=== PATIENT | male | born 1950 | race Caucasian/White ===

== ENCOUNTER 2016-10-25 08:43 | Inpatient (IN) | payer MEDICARE ==
[2016-10-25] MEDS ORDERED: methylPREDNISolone SOD SUCC* 125 MG 2 ML VIAL IV ONE (09:20)
[2016-10-25] MEDS ORDERED: Albuterol/Ipratropium NEB.SOL* Albuterol 2.5 MG/Ipratropium 0.5 MG 3 ML INH ONE (09:20)
--- NOTE | 2016-10-25 10:12 | RAD ---
HISTORY: Shortness of breath COMPARISONS: None VIEWS:1: Single frontal portable view of the chest at 9:40 AM FINDINGS: LINES AND TUBES: None. CARDIOMEDIASTINAL SILHOUETTE: The cardiomediastinal silhouette is normal for portable technique. PLEURA: Please see below LUNG PARENCHYMA: There is sharply marginated opacification of the left upper lung ABDOMEN: The upper abdomen is clear. There is no subphrenic gas. BONES AND SOFT TISSUES: No bone or soft tissue abnormalities are noted. IMPRESSION: THE SHARPLY MARGINATED OPACIFICATION OF THE LEFT UPPER LUNG SUGGESTIVE OF PLEURAL CALCIFICATION, THOUGH AIRSPACE DISEASE IS WITHIN THE DIFFERENTIAL. RECOMMEND CORRELATION WITH PA AND LATERAL DUAL-ENERGY VIEWS OF THE CHEST.
[2016-10-25] MEDS ORDERED: cefTRIAXone(*) 1 GM in NS 0.9% 50 ML* 50 ML IVPB ONE (10:19)
[2016-10-25] MEDS ORDERED: Levofloxacin 500 MG IVPREMIX(* 500 MG/100 ML BAG IVPB ONE (10:19)
[2016-10-25] MEDS ORDERED: NS 0.9% 1000 ML* 2,400 ML IV ONE (10:20)
[2016-10-25 11:12] LABS: Hematocrit 44 % (42-52); Hemoglobin 14.9 g/dl (14.0-18.0); Red Blood Count 4.73 10^6/ul (4.0-5.4); White Blood Count 21.1 10^3/ul (3.5-10.8)
[2016-10-25 11:13] LABS: Mean Corpuscular HGB Conc 34 g/dl (31-36); Mean Corpuscular Hemoglobin 32 pg (27-31); Mean Corpuscular Volume 93 fL (80-94); Mean Platelet Volume 9 um3 (7.4-10.4); Red Cell Distribution Width 13 % (10.5-15)
[2016-10-25 11:25] LABS: PCO2 Arterial 43 mmHg (35-45)
[2016-10-25 11:50] LABS: Troponin I 0.08 ng/mL (<0.04)
[2016-10-25] MEDS ORDERED: Acetaminophen TAB* 325 MG PO PRN (11:52)
[2016-10-25] MEDS ORDERED: NS 0.9% 1000 ML* 1,000 ML IV SCH ×2 (12:00→12:25)
[2016-10-25] MEDS ORDERED: Albuterol/Ipratropium NEB.SOL* Albuterol 2.5 MG/Ipratropium 0.5 MG 3 ML INH PRN (12:01)
[2016-10-25] MEDS ORDERED: Azithromycin TAB* 250 MG PO ONE (12:04)
--- NOTE | 2016-10-25 12:04 | ED ---
Mik Valverde Billy, scribed for Mc Hernandez MD on 10/25/16 at 0918 . Shortness of Breath - HPI Summary HPI Summary: Patient is a 66 year-old male coming to [facility] for evaluation of shortness of breath and productive cough for the last 4 days. SOB is worse with exertion and recumbent position. He also reports chills, denies fever. Patient has been a heavy smoker for the last 50 years, but he recently quit 6 days ago. - History of Current Complaint Chief Complaint: EDShortnessOfBreath Time Seen by Provider: 10/25/16 09:11 Hx Obtained From: Patient Onset/Duration: Gradual Onset, Lasting Days, Still Present Timing: Constant Current Severity: Moderate Dyspnea At: Exertion Aggrevating Factors: Movement, Recumbent Position Alleviating Factors: Upright Position Associated Signs & Symptoms: Cough (Productive), Chills - Allergy/Home Medications Allergies/Adverse Reactions: Allergies Allergy/AdvReac Type Severity Reaction Status Date / Time No Known Allergies Allergy Verified 10/25/16 10:46 PMH/Surg Hx/FS Hx/Imm Hx Endocrine/Hematology History: Denies: Hx Diabetes Cardiovascular History: Denies: Hx Hypertension Infectious Disease History: Denies: Traveled Outside the [place] in Last 30 Days - Family History Known Family History: Positive: Respiratory Disease - emphysema, Other - lung cancer - Social History Alcohol Use: Occasionally - drinks beer 2-3 times a week Hx Substance Use: No Substance Use Type: Reports: None Hx Tobacco Use: Yes Smoking Status (MU): Former Smoker - Quit smoking 6 days ago Review of Systems Positive: Chills. Negative: Fever Positive: Shortness Of Breath, Cough All Other Systems Reviewed And Are Negative: Yes Physical Exam Triage Information Reviewed: Yes Vital Signs On Initial Exam: Initial Vitals Temp Pulse Resp BP Pulse Ox 97.8 F 120 16 118/69 92 10/25/16 08:43 10/25/16 08:43 10/25/16 08:43 10/25/16 08:43 10/25/16 08:43 Vital Signs Reviewed: Yes Appearance: Positive: Well-Appearing Skin: Positive: Warm, Skin Color Reflects Adequate Perfusion Head/Face: Positive: Normal Head/Face Inspection Eyes: Positive: EOMI ENT: Positive: Normal ENT inspection Neck: Positive: Supple, Nontender Respiratory/Lung Sounds: Positive: Wheezes - bilateral with labored breathing Cardiovascular: Positive: Tachycardia. Negative: Murmur Abdomen Description: Positive: Nontender Musculoskeletal: Positive: Normal, Strength/ROM Intact. Negative: Edema Left, Edema Right Neurological: Positive: Normal, Sensory/Motor Intact, Alert, Oriented to Person Place, Time, CN Intact II-III Psychiatric: Positive: Normal Diagnostics - Vital Signs Vital Signs Temp Pulse Resp BP Pulse Ox 10/25/16 08:43 97.8 F 120 16 118/69 92 - Laboratory Result Diagrams: 10/25/16 10:45 10/25/16 10:45 Lab Statement: Any lab studies that have been ordered have been reviewed, and results considered in the medical decision making process. - EKG 0857 EKG Interpretation: sinus tachycardia 115 bpm, no STEMI Re-Evaluation - Re-Evaluation First Eval Re-Evaluation Time: 10:21 Change: Unchanged Comment: charge nurse, and nurse informed the patient needs labs drawn, iv fluids, antibiotics. Course/Dx - Course Course Of Treatment: 66 yr old with thick yellow sputum, and sob, infiltrate chest xray, tachycardia. He will be admitted by hospitalists. - Diagnoses Provider Diagnoses: Pneumonia, Sepsis due to pneumonia - Critical Care Time Critical Care Time: 30-74 min - 35 minutes critical care time Discharge - Discharge Plan Condition: Fair Disposition: ADMITTED TO [facility] The documentation as recorded by the Mik olivares Billy accurately reflects the service I personally performed and the decisions made by , Mc Hernandez MD.
[2016-10-25] MEDS: Heparin VIAL(*) 5000 UNITS/ML VIAL (FIVE THOUSAND) SUBCUT SCH ×2 (13:15→22:12)
[2016-10-25 14:01] LABS: Potassium 3.8 mmol/L (3.5-5.0)
[2016-10-25 14:02] LABS: Albumin 3.7 g/dL (3.2-5.2); BUN/Creatinine Ratio 26.9 (8-20); EGFR African American 127.7 (>60); EGFR Non-African American 99.3 (>60); Globulin 3.8 g/dL (2-4); Total Bilirubin 0.8 mg/dL (0.2-1.0); Total Protein 7.5 g/dL (6.4-8.9)
--- NOTE | 2016-10-25 16:37 | HP ---
HISTORY AND PHYSICAL: DATE OF ADMISSION: 10/25/16 PRIMARY CARE PHYSICIAN: Dr. Chelita Ingram. ATTENDING PHYSICIAN: Dr. Elvis Curtis* (dictated by Michela Schuler NP) CHIEF COMPLAINT: Shortness of breath and cough. HISTORY OF PRESENT ILLNESS: Mr. Fernandez is a 66-year-old male who denies any past medical history, who presents to the emergency room today with complaints of shortness of breath and productive cough for 4 days. The patient reports quitting smoking approximately 6 days ago and has since developed a cough and shortness of breath. The patient reports being seen at Urgent Care yesterday, who recommended the patient be transferred to the emergency room; at that time, the patient declined and went home. The patient continued to have shortness of breath, worse with exertion, with a cough productive of thick green mucus. The patient denies any fever, chest pain, edema, nausea, vomiting, diarrhea. The patient reports chills and shortness of breath with exertion. Due to concern of his continued shortness of breath, the patient presented to the emergency room for further evaluation of his symptoms. While in the emergency room, the patient received IV fluids, DuoNebs, Levaquin, and Solu-Medrol in addition to ceftriaxone. The hospitalists were asked to evaluate the patient for admission. PAST MEDICAL HISTORY: None. PAST SURGICAL HISTORY: None. HOME MEDICATIONS: The patient did not report any medications. ALLERGIES: No known drug allergies. FAMILY HISTORY: The patient's father had history of coronary artery disease with his first myocardial infarction at age 46. The patient denies any family history of diabetes mellitus. The patient's mother had a history of malignant cancer. The patient is unaware what the primary cancer was. SOCIAL HISTORY: The patient reports being a former smoker, smoking a pack a day for 50 years. He reports quitting approximately 6 days ago. The patient drinks 1 to 2 alcoholic drinks 3 times weekly. He denies recreational drug use. The patient is a retired health companion. The patient's daughter, Ute Fernandez, would be his surrogate decision maker in the event that he is unable to make decisions for himself. REVIEW OF SYSTEMS: I performed a 14-point review of systems. All the pertinent positives and negatives are mentioned in the history of present illness. The remaining review of systems is negative. PHYSICAL EXAMINATION GENERAL APPEARANCE: The patient is alert, pleasant, appears to be in no acute distress. VITAL SIGNS: Temperature 98.9, heart rate 106, respiratory rate 26, O2 sat 95% on 2 L via nasal cannula, blood pressure 111/77. HEENT: Normocephalic, atraumatic. Pupils are equal and reactive to light. Extraocular movements are intact. NECK: Supple. RESPIRATORY: There is no accessory muscle use. Lung sounds have bilateral wheezing throughout. CARDIOVASCULAR: Regular rate and rhythm, tachycardic. S1 and S2 present. There are no murmurs, rubs, or gallops heard. ABDOMEN: Soft, nontender, and nondistended. There are bowel sounds present x4. EXTREMITIES: There is no lower extremity edema. DP and PT pulses are 2+ and symmetric. MUSCULOSKELETAL: There is no clubbing or cyanosis noted. The patient exhibits good strength in all extremities. NEUROLOGIC: The patient is alert and oriented x4. Cranial nerves II through XII are grossly intact. PSYCHOLOGICAL: The patient is calm and cooperative. SKIN: There are no rashes or abnormalities seen. DIAGNOSTIC STUDIES/LAB DATA: Chemistry panel pending at the time of dictation. White blood cell count 21.1, hemoglobin 14.9, hematocrit 44, platelet count 343. D- dimer 452. Troponin 0.08. BNP 1195. Lactic acid 0.8. Influenza A and B negative. ABG: pH 7.42, PCO2 43, PO2 149, HCO3 27.1, O2 saturation 99.3, base excess 2.9 on 2 L nasal cannula. EKG shows a sinus tachycardia with a rate of 115. There are no acute signs of ischemia. There are no previous EKGs for comparison. Chest x-ray from today. Radiologist's impression: There is sharply marginated opacification of the left upper lung suggestive of pleural calcification. Though airspace disease is within the differential. Recommend correlation with PA and lateral dual-energy views of the chest. IMPRESSION: Mr. Fernandez is a 66-year-old male with no significant past medical history who presents to the emergency room with complaints of cough and shortness of breath. He will be admitted as an inpatient for community- acquired pneumonia. ASSESSMENT AND PLAN: 1. Community-acquired pneumonia. The patient is currently afebrile at this time. He does have leukocytosis. We will start the patient on ceftriaxone and azithromycin. The patient's qSOFA score is 1 point. The patient is meeting sepsis criteria according to SIRS criteria with tachycardia, tachypnea, and an elevated white blood cell count. The patient will have DuoNeb as needed. 2. Elevated troponin. The patient denies any chest pain. I suspect this is demand ischemia. The patient will be monitored on telemetry and we will trend his troponins. We will also check a fasting lipid level in the morning. 3. Fluids, electrolytes, and nutrition. The patient will be on a regular diet. 4. Code status. Full code. 4. DVT prophylaxis. The patient is at high risk and will be placed on subcu heparin. 5. Disposition. Inpatient. TIME SPENT: The time for this admission was 60 minutes and 35 minutes was spent [id number] with the patient discussing medications, past medical history , and the events leading up to his arrival today and performing a physical examination. The case has been reviewed with the attending, Dr. Curtis, who agrees with the plan of care. Reviewed by BAO VANN-Hanh 10/26/16 2700 CC: Dr. Chelita Ingram* [id number]/[facility] #: [id number] MTDD
[2016-10-26 05:42] LABS: Hematocrit 40 % (42-52); Hemoglobin 13.2 g/dl (14.0-18.0); Mean Corpuscular HGB Conc 33 g/dl (31-36); Mean Corpuscular Hemoglobin 31 pg (27-31); Mean Corpuscular Volume 94 fL (80-94); Mean Platelet Volume 9 um3 (7.4-10.4); Red Blood Count 4.29 10^6/ul (4.0-5.4); Red Cell Distribution Width 13 % (10.5-15); White Blood Count 18.3 10^3/ul (3.5-10.8)
[2016-10-26] MEDS: Heparin VIAL(*) 5000 UNITS/ML VIAL (FIVE THOUSAND) SUBCUT SCH ×3 (05:44→21:30)
[2016-10-26] MEDS: Azithromycin TAB* 250 MG PO SCH (09:46)
[2016-10-26] MEDS: methylPREDNISolone SOD SUCC* 40 MG/ML VIAL IV SCH (11:37)
[2016-10-26] MEDS: cefTRIAXone VIAL(*) 1,000 MG in NS 0.9% 50 ML* 50 ML IVPB SCH (11:37)
[2016-10-26] MEDS ORDERED: Iohexol 300* (CONTRAST) 10 ML SDV IV ONE (11:39)
[2016-10-26] MEDS ORDERED: Iohexol 350* (CONTRAST) 500 ML MDV IV SCH (11:42)
--- NOTE | 2016-10-26 12:50 | RAD ---
HISTORY: Dyspnea, elevated d-dimer COMPARISONS: None TECHNIQUE: Multiple contiguous axial CT scans of the chest were obtained after the administration of nonionic intravenous contrast, timed to the pulmonary arterial phase of contrast enhancement.. Coronal and sagittal multiplanar reformations are also submitted for review. FINDINGS: NECK AND THYROID: The lower neck and thyroid are unremarkable. CHEST WALL: There is no lower cervical, axillary, or supraclavicular lymphadenopathy by size criteria. HEART AND PERICARDIUM: The heart is unremarkable. AORTA AND PULMONARY VASCULATURE: There is no pulmonary arterial filling defect to suggest pulmonary embolism. There is no linear filling defect within the aorta to suggest aortic dissection. MEDIASTINUM: There are multiple AP window and prevascular lymph nodes measuring up to 1 cm in short axis. GEETHA: There are bilateral hilar left, largest measuring up to 1.2 cm in short axis. AIRWAY AND ESOPHAGUS: The airway is unremarkable, without endobronchial filling defect. The esophagus is grossly normal. LUNG PARENCHYMA: There is multifocal tree-in-bud nodularity throughout the lungs bilaterally. There is nodularity along the major fissure on the right suggestive of a intrapulmonary lymph nodes. There is subsegmental atelectasis of the right lower lobe PLEURA: There is pleural calcification along the left upper lobe UPPER ABDOMEN: The upper abdomen is unremarkable. BONES AND SOFT TISSUES: Degenerative changes are noted along the spine. OTHER: None. IMPRESSION: 1. NO PULMONARY ARTERIAL FILLING DEFECT TO SUGGEST PULMONARY EMBOLISM. 2. MILDLY ENLARGED HILAR AND MEDIASTINAL LYMPH NODES. 3. MULTIFOCAL TREE-IN-BUD NODULARITY THROUGHOUT BOTH LUNGS SUGGESTIVE OF AN AIRWAY CENTERED INFLAMMATORY OR INFECTIOUS PROCESS
--- NOTE | 2016-10-26 15:50 | PN ---
Subjective Date of Service: 10/26/16 Interval History: HOSPITALIST PROGRESS NOTE Patient seen and examined at bedside. He feels better today, with less dyspnea and cough. Family History: Unchanged from Admission Social History: Unchanged from Admission Past Medical History: Unchanged from Admission Objective Active Medications: Acetaminophen (Tylenol Tab*) 650 mg PO Q4H PRN PRN Reason: FEVER/PAIN Albuterol/Ipratropium (Duoneb (Albuterol 2.5 Mg/Ipratropium 0.5 Mg)) 1 neb INH Q4H PRN PRN Reason: SOB/WHEEZING Azithromycin (Zithromax Tab*) 250 mg PO DAILY [facility] Stop: 10/30/16 08:59 Last Admin: 10/26/16 09:46 Dose: 250 mg Heparin Sodium (Porcine) (Heparin Vial(*)) 5,000 units SUBCUT Q8HR [facility] Last Admin: 10/26/16 13:49 Dose: 5,000 units Ceftriaxone Sodium 1,000 mg/ (Sodium Chloride) 50 mls @ 200 mls/hr IVPB Q24H [facility] Last Admin: 10/26/16 11:37 Dose: 200 mls/hr Iohexol (Omnipaque 350 (Contrast)-) 80 ml IV ONCE [facility] Stop: 10/28/16 23:59 Last Admin: 10/26/16 12:30 Dose: 80 ml Methylprednisolone Sodium Succinate (Solu-Medrol*) 40 mg IV DAILY [facility] Last Admin: 10/26/16 11:37 Dose: 40 mg Vital Signs 10/26/16 10/26/16 08:42 11:36 Temperature 97.9 F Pulse Rate 80 88 Respiratory 20 16 Rate Blood Pressure 118/68 (mmHg) O2 Sat by Pulse 96 97 Oximetry Oxygen Devices in Use Now: Nasal Cannula Appearance: Pleasant gentleman lying in bed in NAD. Eyes: No Scleral Icterus Ears/Nose/Mouth/Throat: Mucous Membranes Moist Neck: Trachea Midline Respiratory: Symmetrical Chest Expansion and Respiratory Effort, - - BS+ bilaterally with scattered wheezes Cardiovascular: NL Sounds; No Murmurs; No JVD, RRR Abdominal: NL Sounds; No Tenderness; No Distention Extremities: No Edema Neurological: Alert and Oriented x 3, NL Muscle Strength and Tone Lines/Tubes/Other Access: Clean, Dry and Intact Peripheral IV Nutrition: Taking PO's Result Diagrams: 10/26/16 05:06 10/25/16 10:45 Assess/Plan/Problems-Billing Assessment: Mr. Fernandez is a 66yo M with PMH of tobacco abuse who presented to ED with c/o shortness of breath and cough, found to have COPD exacerbation. - Patient Problems (1) COPD exacerbation Comment: - Suspect patient has undiagnosed COPD and presents now with exacerbation secondary to bronchitis. - Continue Ceftriaxone, Zithromax, bronchodilators, and add steroids. - Will check CTA chest to r/o PE and to better explore lung parenchyma. (2) Tobacco abuse Comment: - Patient quit smoking 1 week ago and is very motivated at this time. (3) DVT prophylaxis Comment: - SQ heparin. (4) Full code status Status and Disposition: Inpatient.
[2016-10-27 06:12] LABS: Hematocrit 38 % (42-52); Hemoglobin 12.3 g/dl (14.0-18.0); Mean Corpuscular HGB Conc 33 g/dl (31-36); Mean Corpuscular Hemoglobin 31 pg (27-31); Mean Corpuscular Volume 94 fL (80-94); Mean Platelet Volume 9 um3 (7.4-10.4); Red Blood Count 3.99 10^6/ul (4.0-5.4); Red Cell Distribution Width 13 % (10.5-15); White Blood Count 22.9 10^3/ul (3.5-10.8)
[2016-10-27] MEDS: Heparin VIAL(*) 5000 UNITS/ML VIAL (FIVE THOUSAND) SUBCUT SCH ×3 (06:16→21:38)
[2016-10-27 06:29] LABS: BUN/Creatinine Ratio 35.2 (8-20); C Reactive Protein 111.48 mg/L (< 5.00); Calcium 9.4 mg/dL (8.6-10.3); EGFR African American 142.3 (>60); EGFR Non-African American 110.7 (>60); Potassium 4.5 mmol/L (3.5-5.0)
[2016-10-27 06:43] LABS: Comments Flag Yes
[2016-10-27 06:44] LABS: Add Diff/Slide Review? Slide Review Added
[2016-10-27 08:10] LABS: Immature Granulocytes 2 % (0-9); Metamyelocytes % 1 % (0-2); Neutrophil % 79 % (38-83)
[2016-10-27 08:11] LABS: Add Path Review? YES; Reactive Lymph % 6 % (0-6)
[2016-10-27 08:20] LABS: RBC Morphology Normal (Normal)
[2016-10-27] MEDS: methylPREDNISolone SOD SUCC* 40 MG/ML VIAL IV SCH (08:56)
[2016-10-27] MEDS: Azithromycin TAB* 250 MG PO SCH (08:56)
[2016-10-27] MEDS ORDERED: Pneumococcal Vac Polyvalent* 0.5 ML VIAL IM ONE (09:00)
[2016-10-27] MEDS: cefTRIAXone VIAL(*) 1,000 MG in NS 0.9% 50 ML* 50 ML IVPB SCH (11:12)
--- NOTE | 2016-10-27 17:53 | PN ---
Subjective Date of Service: 10/27/16 Interval History: HOSPITALIST PROGRESS NOTE Patient seen and examined at bedside. He feels better today. Dyspnea is less intense, cough is still frequent. Able to ambulate around unit with no issues. Appetite is good, tolerating diet well. Family History: Unchanged from Admission Social History: Unchanged from Admission Past Medical History: Unchanged from Admission Objective Active Medications: Acetaminophen (Tylenol Tab*) 650 mg PO Q4H PRN PRN Reason: FEVER/PAIN Albuterol/Ipratropium (Duoneb (Albuterol 2.5 Mg/Ipratropium 0.5 Mg)) 1 neb INH Q4H PRN PRN Reason: SOB/WHEEZING Azithromycin (Zithromax Tab*) 250 mg PO DAILY [facility] Stop: 10/30/16 08:59 Last Admin: 10/27/16 08:56 Dose: 250 mg Heparin Sodium (Porcine) (Heparin Vial(*)) 5,000 units SUBCUT Q8HR [facility] Last Admin: 10/27/16 14:46 Dose: 5,000 units Ceftriaxone Sodium 1,000 mg/ (Sodium Chloride) 50 mls @ 200 mls/hr IVPB Q24H [facility] Last Admin: 10/27/16 11:12 Dose: 200 mls/hr Iohexol (Omnipaque 350 (Contrast)-) 80 ml IV ONCE [facility] Stop: 10/28/16 23:59 Last Admin: 10/26/16 12:30 Dose: 80 ml Methylprednisolone Sodium Succinate (Solu-Medrol*) 40 mg IV DAILY [facility] Last Admin: 10/27/16 08:56 Dose: 40 mg Vital Signs 10/27/16 10/27/16 10/27/16 08:00 12:15 15:38 Temperature 97.5 F 97.9 F Pulse Rate 84 90 Respiratory 22 20 16 Rate Blood Pressure 120/70 123/72 (mmHg) O2 Sat by Pulse 94 92 94 Oximetry Oxygen Devices in Use Now: None Appearance: Pleasant gentleman sitting up in bed in NAD. Eyes: No Scleral Icterus Ears/Nose/Mouth/Throat: Mucous Membranes Moist Neck: Trachea Midline Respiratory: Symmetrical Chest Expansion and Respiratory Effort, - - BS+ bilaterally coarse, but no added sounds. Cardiovascular: NL Sounds; No Murmurs; No JVD, RRR Abdominal: NL Sounds; No Tenderness; No Distention Extremities: No Edema Neurological: Alert and Oriented x 3, NL Muscle Strength and Tone Lines/Tubes/Other Access: Clean, Dry and Intact Peripheral IV Nutrition: Taking PO's Result Diagrams: 10/27/16 05:51 10/27/16 05:51 Assess/Plan/Problems-Billing Assessment: Mr. Fernandez is a 66yo M with PMH of tobacco abuse who presented to ED with c/o shortness of breath and cough, found to have COPD exacerbation. - Patient Problems (1) COPD exacerbation Comment: - Suspect patient has undiagnosed COPD and presents now with exacerbation. - CTA was negative for PE, but shows multifocal tree in bud nodularity suggesting infectious process. - Continue Ceftriaxone, Zithromax, bronchodilators, and steroids. (2) Pneumonia due to hemophilus influenzae Comment: - Sputum culture growing H. influenzae. - Suspect he has pneumonia with a component and bronchitis. - Continue Ceftriaxone and Zithromax. - Suspect leukocytosis went up again today because of steroids. Clinically he continues to improve. (3) Tobacco abuse Comment: - Patient quit smoking 1 week ago and is very motivated at this time. (4) DVT prophylaxis Comment: - SQ heparin. (5) Full code status Status and Disposition: Inpatient.
[2016-10-28] MEDS: Heparin VIAL(*) 5000 UNITS/ML VIAL (FIVE THOUSAND) SUBCUT SCH (06:02)
[2016-10-28 06:03] LABS: Hematocrit 39 % (42-52); Hemoglobin 12.7 g/dl (14.0-18.0); Mean Corpuscular HGB Conc 33 g/dl (31-36); Mean Corpuscular Hemoglobin 31 pg (27-31); Mean Corpuscular Volume 94 fL (80-94); Mean Platelet Volume 9 um3 (7.4-10.4); Red Blood Count 4.13 10^6/ul (4.0-5.4); Red Cell Distribution Width 13 % (10.5-15); White Blood Count 14.8 10^3/ul (3.5-10.8)
[2016-10-28 06:11] LABS: Add Diff/Slide Review? Slide Review Added; Comments Flag Yes
[2016-10-28 06:17] LABS: BUN/Creatinine Ratio 33.3 (8-20); C Reactive Protein 61.87 mg/L (< 5.00); Calcium 9.3 mg/dL (8.6-10.3); EGFR African American 147.1 (>60); EGFR Non-African American 114.4 (>60); Potassium 4.2 mmol/L (3.5-5.0)
[2016-10-28] MEDS: methylPREDNISolone SOD SUCC* 40 MG/ML VIAL IV SCH (08:14)
[2016-10-28] MEDS: Azithromycin TAB* 250 MG PO SCH (08:14)
[2016-10-28] MEDS ORDERED: Albuterol HFA INHALER* 8 gm MDI INH PRN (09:21)
[2016-10-28] MEDS ORDERED: ceFUROXime 500 mg TAB(NF) 500 MG TAB PO ONE (09:21)
[2016-10-28] MEDS ORDERED: predniSONE TAB* 20 MG PO ONE (09:21)
[2016-10-28 09:24] VITALS: BP 123/80
[2016-10-28] MEDS ORDERED: ceFUROXime TAB(*) 250 MG ONE (09:43)
[2016-10-28] MEDS ORDERED: ceFUROXime TAB(*) 250 MG PO ONE (10:00)
--- NOTE | 2016-10-29 03:46 | DS ---
DISCHARGE SUMMARY: DATE OF ADMISSION: 10/25/16 DATE OF DISCHARGE: 10/28/16 PRIMARY CARE PHYSICIAN: Chelita Ingram MD PERSONAL CLOTHING LAUNDRY AIDE: Gabriela Eduardo MD DISCHARGE DIAGNOSES: 1. Sepsis, present on admission, secondary to pneumonia. 2. Chronic obstructive pulmonary disease exacerbation secondary to bronchitis and pneumonia. 3. Haemophilus influenzae pneumonia. 4. Leukocytosis with left shift and possible plasma cell. 5. Minimal troponin elevation. 6. Elevated BNP. SECONDARY DIAGNOSIS: Tobacco abuse. MEDICATION LIST: All the medications below are new. 1. Albuterol HFA 2 puffs inhaled q.6 hours p.r.n. shortness of breath. 2. Azithromycin 250 mg p.o. daily for 4 more days. 3. Ceftin 500 mg p.o. q.12 hours for 10 more days. 4. Guaifenesin 5 mL p.o. q.4 hours p.r.n. cough. 5. Prednisone taper as follows: 40 mg p.o. for 3 days, then 30 for 3 days, 20 for 3 days, 10 for 3 days, 5 for 3 days, and stop. HOSPITAL COURSE: Mr. Fernandez is a 66-year-old male with a past medical history as stated above that presented to the emergency room with complaints of shortness of breath and productive cough. One week prior to admission, the patient had decided he was going to quit smoking and initially he was feeling better, but then he developed progressive shortness of breath and cough. For more details about his presentation, I refer you to his history and physical. In the emergency room, his x-ray showed sharply marginated opacification of the left upper lung suggestive of pleural calcification though airspace disease is within the differential. His CBC revealed leukocytosis with a white cell count of 21,000. The patient was admitted to the medical floor under the impression of sepsis and pneumonia and he was started on antibiotics. The patient had progressive improvement of his cough and shortness of breath. He did not require further supplemental oxygen and had improvement of his symptoms. Blood cultures showed no growth. Legionella and pneumococcal antigens were negative and his sputum grew Haemophilus influenzae. A CTA of the chest was performed and it was negative for pulmonary embolism. He was found to have mildly enlarged hilar and mediastinal lymph nodes, multifocal tree-in-bud nodularity throughout both lungs suggestive of an airways inflammatory or infectious process. The patient's leukocytosis trended down and is 14.8 on the day of discharge. But one CBC showed a white cell count of 22.9 with reactive lymphocytes and the possibility of a plasma cell. This smear was sent to pathologist and their results are still pending at this time, so the results should be followed. He also had metamyelocytes on this CBC, but I believe this all related to his sepsis as all those cells have disappeared on his subsequent CBC. As stated above, the patient had already quit smoking prior to his symptoms and he seems to be very motivated to continue. The patient was advised to followup with Dr. Eduardo after 4 to 6 weeks to have PFTs performed as I strongly believe he has COPD, but has never been formally diagnosed with it. On admission, the patient was found to have a minimally elevated troponin of 0.08 and he had no ischemic changes on his EKG. Serial troponins later on were negative and he had no significant arrhythmias on telemetry. I believe this minimal troponin elevation is likely secondary to increased demand in the setting of sepsis and pneumonia, but later on, he would probably benefit of a stress test as outpatient. He had also an elevated BNP at 1100. This maybe secondary to COPD with right-sided heart compromise. He would benefit of a transthoracic echocardiogram as outpatient. The patient is medically stable to be discharged at this time. PHYSICAL EXAMINATION: Vital Signs: Temperature 97.6, heart rate is 91, respiratory rate is 22, oxygen saturation 92% on room air, and blood pressure 123/80. General: The patient is a pleasant gentleman, sitting up in bed, in no acute distress. CVS: Normal S1, S2. Regular rate and rhythm. Chest: Breath sounds present bilaterally coarse with no added sounds. Abdomen: Soft, nontender, and nondistended. Bowel sounds are present. Extremities: No edema. Neuro: He is alert and oriented x3. Able to move all 4 extremities. DIET: Regular diet. ACTIVITY: As tolerated. DISPOSITION: To home. STATUS WHILE IN THE HOSPITAL: Inpatient. Please keep in mind, this is a summarized version of this patient's hospital stay. If you need more information, please feel free to call me at [phone] or obtain the full medical records. TIME SPENT: Approximately 50 minutes was spent to complete this discharge. CC: Chelita Ingram MD; Gabriela Eduardo MD * [id number]/[facility] #: [id number] [facility]
== END 2016-10-28 10:41 | disposition home or self-care (01) | DRG 871 ==
LOC: ED 08:43 → MED 11:21 → MEDTELE 12:44
PROVIDERS: ADMIT Hospitalist; ATTEND Internal Medicine
PROC: 3E0234Z Introduction of Serum, Toxoid and Vaccine into Muscle, Percutaneous Approach (ICD-10-PCS; principal; 2016-10-27)
DX: A41.9 Sepsis, unspecified organism (principal); J14 Pneumonia due to Hemophilus influenzae; I24.8 Other forms of acute ischemic heart disease; J44.0 Chronic obstructive pulmonary disease with (acute) lower respiratory infection; J44.1 Chronic obstructive pulmonary disease with (acute) exacerbation; Z80.1 Family history of malignant neoplasm of trachea, bronchus and lung; Z87.891 Personal history of nicotine dependence; Z82.49 Family history of ischemic heart disease and other diseases of the circulatory system; J40 Bronchitis, not specified as acute or chronic; Z23 Encounter for immunization; R59.0 Localized enlarged lymph nodes
CPT/HCPCS: 36415; 36600; 71010; 71275; 80048; 80053; 80061; 82803; 83605; 83880; 84484; 85025; 85060; 85379; 85610; 85730; 86140; 87040; 87070; 87077; 87185; 87205; 87502; 87899; 90732; 93005; 94640; 94760; A9270-GY; J0696; J1644; J1956; J2920; J2930; Q9967

== ENCOUNTER 2019-03-17 16:13 | Emergency (ER) | payer MEDICARE ==
[2019-03-17 16:50] LABS: Urine Appearance Turbid; Urine Bacteria 3+ (Absent); Urine Bilirubin Negative (Negative); Urine Blood 3+ (Negative); Urine Color Yellow; Urine Glucose Negative (Negative); Urine Ketones Negative (Negative); Urine Nitrite Positive (Negative); Urine Protein 2+(100 mg/dL) (Negative); Urine Red Blood Cell 3+(>10/hpf) (Absent); Urine Specific Gravity 1.005 (1.010-1.030); Urine Urobilinogen Negative (Negative); Urine White Blood Cell 3+(>20/hpf) (Absent)
[2019-03-17 17:47] LABS: ABS Eosinophils 0.6 10^3/ul (0-0.6); ABS Lymphocytes 2.5 10^3/ul (1.0-4.8); ABS Neutrophils 4.7 10^3/ul (1.5-7.7); Eosinophil % 7.3 %; Hematocrit 43 % (42-52); Hemoglobin 14.6 g/dL (14.0-18.0); Mean Corpuscular HGB Conc 34 g/dL (31-36); Mean Corpuscular Hemoglobin 32 pg (27-31); Mean Corpuscular Volume 94 fL (80-94); Mean Platelet Volume 8.2 fL (7.4-10.4); Platelet Count 271 10^3/uL (150-450); Red Blood Count 4.53 10^6 /uL (4.18-5.48); Red Cell Distribution Width 14 % (10-15); White Blood Count 8.8 10^3/uL (3.5-10.8)
[2019-03-17 18:04] LABS: Albumin/Globulin Ratio 1.5 (1-3); BUN/Creatinine Ratio 16.5 (8-20); C Reactive Protein 16.68 mg/L (<8.01); EGFR African American 76.3 (>60); EGFR Non-African American 63.1 (>60); Globulin 2.6 g/dL (2-4); Total Bilirubin 0.3 mg/dL (0.2-1.0); Total Protein 6.6 g/dL (6.4-8.9)
[2019-03-17] MEDS ORDERED: Sulfamethox/Trimethoprim DS 800/160* TAB PO ONE (18:10)
--- NOTE | 2019-03-17 18:14 | ED ---
GI/ HPI - HPI Summary HPI Summary: Patient with history of left nephrostomy tube states urine has been getting cloudier and more foul-smelling 1 week. Denies any other pain, injury or symptoms. Left nephrostomy tube secondary to scarring from lithotripsy 2. - History of Current Complaint Chief Complaint: EDUrogenitalProblems Time Seen by Provider: 03/17/19 16:38 Stated Complaint: POSS INFECTION ON BACK PER PT Hx Obtained From: Patient Onset/Duration: Started Days Ago Current Severity: None Pain Intensity: 0 Associated Signs and Symptoms: Positive: Negative - Additional Pertinent History Primary Care Physician: MAHAMED - Allergy/Home Medications Allergies/Adverse Reactions: Allergies Allergy/AdvReac Type Severity Reaction Status Date / Time No Known Allergies Allergy Verified 10/25/16 10:46 PMH/Surg Hx/FS Hx/Imm Hx Endocrine/Hematology History: Denies: Hx Diabetes Cardiovascular History: Denies: Hx Hypertension Respiratory History: Reports: Hx Pneumonia - 10/25/16 ADMISSION History: Reports: Hx Kidney Stones Sensory History: Denies: Hx Contacts or Glasses, Hx Hearing Aid Opthamlomology History: Denies: Hx Contacts or Glasses EENT History: Denies: Hx Deafness Neurological History: Denies: Hx Dementia - Immunization History Immunizations Up to Date: Yes Infectious Disease History: No Infectious Disease History: Denies: Traveled Outside the [place] in Last 30 Days - Family History Known Family History: Positive: Respiratory Disease - emphysema, Other - lung cancer - Social History Alcohol Use: Occasionally Hx Substance Use: No Substance Use Type: Reports: None Hx Tobacco Use: Yes Smoking Status (MU): Former Smoker Review of Systems Constitutional: Negative Eyes: Negative ENT: Negative Cardiovascular: Negative Respiratory: Negative Gastrointestinal: Negative Positive: other Musculoskeletal: Negative Skin: Negative Neurological: Negative Psychological: Normal All Other Systems Reviewed And Are Negative: Yes Physical Exam - Summary Physical Exam Summary: Chronic rash at site of catheter bag placement on left thigh. Abdomen soft nontender. Triage Information Reviewed: Yes Vital Signs On Initial Exam: Initial Vitals Temp Pulse Resp BP Pulse Ox 98.5 F 84 18 130/93 95 03/17/19 16:14 03/17/19 16:14 03/17/19 16:14 03/17/19 16:14 03/17/19 16:14 Vital Signs Reviewed: Yes Appearance: Positive: Well-Appearing Skin: Positive: Warm Head/Face: Positive: Normal Head/Face Inspection Eyes: Positive: Normal Neck: Positive: Supple Respiratory/Lung Sounds: Positive: Clear to Auscultation Cardiovascular: Positive: Normal Abdomen Description: Positive: Nontender Musculoskeletal: Positive: Normal Neurological: Positive: Normal Psychiatric: Positive: Normal AVPU Assessment: Alert - [place] Coma Scale Best Eye Response: 4 - Spontaneous Best Motor Response: 6 - Obeys Commands Best Verbal Response: 5 - Oriented Coma Scale Total: 15 Diagnostics - Vital Signs Vital Signs Temp Pulse Resp BP Pulse Ox 03/17/19 16:14 98.5 F 84 18 130/93 95 - Laboratory Lab Results: Lab Results 03/17/19 03/17/19 03/17/19 Range/Units 16:19 17:39 17:40 WBC 8.8 (3.5-10.8) 10^3/uL RBC 4.53 (4.18-5.48) 10^6 /uL Hgb 14.6 (14.0-18.0) g/dL Hct 43 (42-52) % MCV 94 (80-94) fL MCH 32 H (27-31) pg MCHC 34 (31-36) g/dL RDW 14 (10-15) % Plt Count 271 (150-450) 10^3/uL MPV 8.2 (7.4-10.4) fL Neut % (Auto) 52.6 % Lymph % (Auto) 28.0 % [place] % (Auto) 11.6 % Eos % (Auto) 7.3 % Baso % (Auto) 0.5 % Absolute Neuts (auto) 4.7 (1.5-7.7) 10^3/ul Absolute Lymphs (auto) 2.5 (1.0-4.8) 10^3/ul Absolute Monos (auto) 1.0 H (0-0.8) 10^3/ul Absolute Eos (auto) 0.6 (0-0.6) 10^3/ul Absolute Basos (auto) 0.0 (0-0.2) 10^3/ul Absolute Nucleated RBC 0.0 10^3/ul Nucleated RBC % 0.0 Sodium 137 (135-145) mmol/L Potassium Pending Chloride 103 (101-111) mmol/L Carbon Dioxide 33 H (22-32) mmol/L Anion Gap Pending BUN 19 (6-24) mg/dL Creatinine 1.15 (0.67-1.17) mg/dL Est GFR ( Amer) 76.3 (>60) Est GFR (Non-Af Amer) 63.1 (>60) BUN/Creatinine Ratio 16.5 (8-20) Glucose 105 H (70-100) mg/dL Lactic Acid (0.5-2.0) mmol/L Calcium 10.0 (8.6-10.3) mg/dL Total Bilirubin 0.30 (0.2-1.0) mg/dL AST Pending ALT 16 (7-52) U/L Alkaline Phosphatase 70 (34-104) U/L C-Reactive Protein 16.68 H (<8.01) mg/L Total Protein 6.6 (6.4-8.9) g/dL Albumin 4.0 (3.2-5.2) g/dL Globulin 2.6 (2-4) g/dL Albumin/Globulin Ratio 1.5 (1-3) Urine Color Yellow Urine Appearance Turbid Urine pH 7.0 (5-9) Ur Specific [place] 1.005 L (1.010-1.030) Urine Protein 2+(100 mg/dl) A (Negative) Urine Ketones Negative (Negative) Urine Blood 3+ A (Negative) Urine Nitrate Positive A (Negative) Urine Bilirubin Negative (Negative) Urine Urobilinogen Negative (Negative) Ur Leukocyte Esterase 3+ A (Negative) Urine WBC (Auto) 3+(>20/hpf) A (Absent) Urine RBC (Auto) 3+(>10/hpf) A (Absent) Urine Bacteria 3+ A (Absent) Urine Glucose Negative (Negative) 03/17/19 Range/Units 17:40 WBC (3.5-10.8) 10^3/uL RBC (4.18-5.48) 10^6 /uL Hgb (14.0-18.0) g/dL Hct (42-52) % MCV (80-94) fL MCH (27-31) pg MCHC (31-36) g/dL RDW (10-15) % Plt Count (150-450) 10^3/uL MPV (7.4-10.4) fL Neut % (Auto) % Lymph % (Auto) % [place] % (Auto) % Eos % (Auto) % Baso % (Auto) % Absolute Neuts (auto) (1.5-7.7) 10^3/ul Absolute Lymphs (auto) (1.0-4.8) 10^3/ul Absolute Monos (auto) (0-0.8) 10^3/ul Absolute Eos (auto) (0-0.6) 10^3/ul Absolute Basos (auto) (0-0.2) 10^3/ul Absolute Nucleated RBC 10^3/ul Nucleated RBC % Sodium (135-145) mmol/L Potassium Chloride (101-111) mmol/L Carbon Dioxide (22-32) mmol/L Anion Gap BUN (6-24) mg/dL Creatinine (0.67-1.17) mg/dL Est GFR ( Amer) (>60) Est GFR (Non-Af Amer) (>60) BUN/Creatinine Ratio (8-20) Glucose (70-100) mg/dL Lactic Acid 0.6 (0.5-2.0) mmol/L Calcium (8.6-10.3) mg/dL Total Bilirubin (0.2-1.0) mg/dL AST ALT (7-52) U/L Alkaline Phosphatase (34-104) U/L C-Reactive Protein (<8.01) mg/L Total Protein (6.4-8.9) g/dL Albumin (3.2-5.2) g/dL Globulin (2-4) g/dL Albumin/Globulin Ratio (1-3) Urine Color Urine Appearance Urine pH (5-9) Ur Specific [place] (1.010-1.030) Urine Protein (Negative) Urine Ketones (Negative) Urine Blood (Negative) Urine Nitrate (Negative) Urine Bilirubin (Negative) Urine Urobilinogen (Negative) Ur Leukocyte Esterase (Negative) Urine WBC (Auto) (Absent) Urine RBC (Auto) (Absent) Urine Bacteria (Absent) Urine Glucose (Negative) Result Diagrams: 03/17/19 17:40 03/17/19 17:39 Lab Statement: Any lab studies that have been ordered have been reviewed, and results considered in the medical decision making process. GIGU Course/Dx - Course Course Of Treatment: Patient with history of left nephrostomy tube states urine has been getting cloudier and more foul-smelling 1 week. Denies any other pain , injury or symptoms. Left nephrostomy tube secondary to scarring from lithotripsy 2. Vital signs within normal limits. Labs unremarkable. Positive for UTI. Rx for Bactrim. - Diagnoses Provider Diagnoses: Kidney infection Discharge ED - Sign-Out/Discharge Documenting (check all that apply): Patient Departure Patient Received Moderate/Deep Sedation with Procedure: No - Discharge Plan Condition: Stable Disposition: HOME Prescriptions: Sulfamethox/Trimethoprim DS* [Bactrim DS 800/160 TAB*] 1 tab PO BID 14 Days #28 tab Patient Education Materials: Kidney Infection (ED) Referrals: Chelita Ingram MD [Primary Care Provider] - Additional Instructions: Take antibiotics as directed. Follow up with your urologist. Return to the ED for any new or worsening symptoms. - Billing Disposition and Condition Condition: STABLE Disposition: Home
[2019-03-17 18:30] LABS: Potassium 4.2 mmol/L (3.5-5.0)
[2019-03-17 18:41] VITALS: BP 135/74
--- NOTE | 2019-03-20 05:56 | PN ---
Progress Note - Progress Note Date of Service: 03/17/19 Note: Urine culture preliminary grew strep, staph and gram-negative bacilli Patient was treated for kidney infection Patient was placed on Bactrim prior to discharge This is sensitive to organism
== END 2019-03-17 18:38 | disposition home or self-care (01) ==
LOC: ED 16:13
DX: N15.8 Other specified renal tubulo-interstitial diseases (principal); Z93.6 Other artificial openings of urinary tract status; Z87.891 Personal history of nicotine dependence; R21 Rash and other nonspecific skin eruption; B96.89 Other specified bacterial agents as the cause of diseases classified elsewhere
CPT/HCPCS: 36415; 80053; 81003; 81015; 83605; 85025; 86140; 87077; 87086; 87184; 87186; 99282; A9270-GY